=== PATIENT | male | born 1985 | race Caucasian/White ===

== ENCOUNTER 2024-06-05 00:56 | Emergency (ER) | payer MEDICAID ==
[~2024-06-05] VITALS: Ht 185.4 cm; Wt 79.4 kg
[2024-06-05] MEDS ORDERED: KETOROLAC TROMETHAMINE 30 MG INJ IM ONE (01:30)
[2024-06-05] MEDS ORDERED: KETOROLAC TROMETHAMINE 30 MG INJ ONE (01:34)
[2024-06-05] MEDS ORDERED: MORPHINE SULFATE 4 MG/1 ML DISP.SYRIN ONE ×2 (01:40→07:55)
[2024-06-05] MEDS ORDERED: IBUPROFEN 800 MG TABLET PO ONE (01:45)
[2024-06-05] MEDS: MORPHINE SULFATE 4 MG/1 ML DISP.SYRIN IM ONE (01:48)
[2024-06-05 01:51] LABS: BASOPHILS # (AUTO) 0.1 K/UL (0.0-0.2); EOSINOPHILS # (AUTO) 0.5 K/uL (0.0-0.7); EOSINOPHILS % (AUTO) 4.8 % (0.0-7.0); HEMATOCRIT 43.9 % (36.7-47.1); HEMOGLOBIN 15.8 g/dL (12.5-16.3); LYMPHOCYTES # (AUTO) 3.3 K/uL (0.8-4.8); LYMPHOCYTES % (AUTO) 33.5 % (20.5-51.5); MEAN CORPUSCULAR HEMOGLOBIN 30.5 uug (23.8-33.4); MEAN CORPUSCULAR HGB CONC 36 g/dL (32.5-36.3); MONOCYTES # (AUTO) 0.6 K/uL (0.1-1.30); MONOCYTES % (AUTO) 5.9 % (0.0-11.0); NEUTROPHILS # (AUTO) 5.4 K/uL (1.8-8.9); NEUTROPHILS % (AUTO) 54.8 % (38.5-71.5); PLATELET COUNT (AUTO) 228 K/uL (152-348); RED BLOOD CELL COUNT(AUTO) 5.17 MIL/uL (4.06-5.63); RED CELL DISTRIBUTION WIDTH 13.2 % (12.1-16.2); WHITE BLOOD COUNT (AUTO) 9.9 K/uL (3.6-10.2)
[2024-06-05 02:15] LABS: DIFFERENTIAL COMMENT 1
[2024-06-05 02:37] LABS: ALBUMIN 3.7 g/dL (3.4-5.0); BILIRUBIN,TOTAL 0.3 mg/dL (0.2-1.0); CALCIUM 8.9 mg/dL (8.5-10.1); CREATININE 1.1 mg/dL (0.6-1.3); POTASSIUM 3.7 mmol/L (3.5-5.1); TOTAL PROTEIN, SERUM 7.3 g/dL (6.4-8.2)
[2024-06-05 02:56] LABS: *BILIRUBIN,URIN NEGATIVE (NEGATIVE); *BLOOD, URINE 3+ (NEGATIVE); *CLARITY,URINE TURBID (CLEAR); *COLOR,URINE YELLOW (YELLOW); *KETONES,URINE 1+ (NEGATIVE); *PROTEIN,URINE NEGATIVE (NEGATIVE); *UROBILINOGEN,URINE 0.2 E.U./dl (NORMAL); LEUKOCYTE ESTERASE ,URINE NEGATIVE (NEGATIVE); NITRITE, URINE NEGATIVE (NEGATIVE); UGLUCOSE NEGATIVE (NEGATIVE)
[2024-06-05 03:43] LABS: BACTERIA,URINE FEW /HPF (NONE SEEN); RBC,URINE 20-50 /HPF (0-3); WBC,URINE 0-3 /HPF (0-3)
[2024-06-05 03:44] LABS: SQUAMOUS EPITHELIAL CELL,UR FEW /HPF (NONE SEEN); URIC ACID CRYSTALS,URINE FEW /HPF (NONE SEEN); WAXY CASTS,URINE 0-3 /LPF (NONE SEEN); YEAST,URINE FEW /HPF (NONE SEEN)
[2024-06-05] MEDS ORDERED: HYDR-3980 PO (07:49)
[2024-06-05] MEDS ORDERED: TAMS-3 PO (07:49)
[2024-06-05] MEDS ORDERED: IBUP-1957 PO (07:49)
[2024-06-05] MEDS: MORPHINE SULFATE 4 MG/1 ML DISP.SYRIN IV ONE (08:01)
[2024-06-05] MEDS: ONDANSETRON 4 MG/2 ML VIAL IV ONE (08:02)
[2024-06-05 08:03] VITALS: BP 120/82; TEMP 98; O2SAT 96
== END 2024-06-05 08:03 | disposition home or self-care (01) ==
LOC: ER 01:12
DX: N13.2 Hydronephrosis with renal and ureteral calculous obstruction (principal); R10.9 Unspecified abdominal pain
CPT/HCPCS: 99285; 74176; 96374; 80053; 81001; 83690; 85025; 36415; 96372; 87086; J1885; J2270 ×2; A4606; A4663